=== PATIENT | female | born 1975 | race African-American/Black ===

== ENCOUNTER 2017-06-06 02:47 | Emergency (ER) | payer OTHER ==
[2017-06-06] MEDS ORDERED: Acetaminophen 500 MG TAB ONE (03:15)
[2017-06-06 03:47] LABS: Hematocrit 30.5 % (36.0-47.0); Mean Platelet Volume 6.5 fL (7.4-10.4); White Blood Cell (WBC) Count 6.3 thou/uL (4.8-10.8)
[2017-06-06 04:01] LABS: ALT (SGPT) 11 U/L (8-55); AST (SGOT) 13 U/L (5-34); Alkaline Phosphatase 66 U/L (40-150); Anion Gap 12 mmol/L (10-20); BUN (Urea Nitrogen) 6 mg/dL (7.0-18.7); Bilirubin, Total 0.2 mg/dL (0.2-1.2); CK (CPK) 73 U/L (29-168); Calc. Creatinine Clearance 0 mL/min (70-130); Calcium 8.9 mg/dL (7.8-10.44); Carbon Dioxide 28 mmol/L (22-29); Chloride 102 mmol/L (98-107); Estimated GFR-MDRD Greater than 90; Protein, Total 7.6 g/dL (6.0-8.3)
[2017-06-06 04:04] LABS: Troponin I Less than 0.010 ng/mL (< 0.028)
[2017-06-06 04:22] LABS: #Eosinphils 0.1 thou/uL (0.0-0.7); #Lymphocytes 2.4 thou/uL (1.20-3.40); #Monocytes 0.4 thou/uL (0.11-0.59); #Neutrophils 3.3 thou/uL (1.40-6.50); %Basophils 0.6 % (0.0-1.0); %Eosinophils 1.9 % (0.0-10.0); %Lymphocytes 38.6 % (21.0-51.0); %Monocytes 6.7 % (0.0-10.0); Anisocytosis SLIGHT = 6-15 cells (100X) (0-5/hpf); Hypochromia SLIGHT = 6-15 cells (100X) (0-5/hpf); Microcytosis SLIGHT = 6-15 cells (100X) (0-5/hpf)
[2017-06-06] MEDS ORDERED: Ketorolac Tromethamine 30 MG/ML VIAL ONE (04:38)
--- NOTE | 2017-06-06 09:11 | ULT ---
PRELIMINARY REPORT/[facility]/EMERGENCY AFTER HOURS PROCEDURE: EXAM: US Duplex Right Lower Extremity Veins CLINICAL HISTORY: 42 years old, female; Pain and signs and symptoms; Edema, localized; Lower extremity, right; Leg, low er TECHNIQUE: Real-time ultrasound scan of the veins of the right lower extremity with color Doppler flow, spectral waveform analysis and compression. COMPARISON: No relevant prior studies available. FINDINGS: No visible clot in the included veins. The included veins appear normally compressible. Duplex Doppler evaluation demonstrates flow in the evaluated veins. IMPRESSION: No evidence of acute right lower extremity DVT. Thank you for allowing us to participate in the care of your patient. Dictated and Authenticated by: Kana Matthews MD 06/06/2017 4:03 AM Central Time ([place] & [place]) FINAL REPORT RIGHT LOWER EXTREMITY VENOUS DOPPLER ULTRASOUND: Date: 06/06/17 COMPARISON: None. HISTORY: Pain, edema, assess for deep venous thrombosis. TECHNIQUE: Multiplanar Martínez scale sonographic imaging of the venous structures of right lower extremity obtained with color flow and spectral analysis. FINDINGS: Right common femoral vein, greater saphenous vein, profunda femoral vein, femoral vein, popliteal vei n, and posterior tibial vein are patent. There is normal blood flow, augmentation, and compression wi thin the deep venous system of the right lower extremity with no evidence for deep venous thrombosis. IMPRESSION: No evidence for right lower extremity deep venous thrombosis. I agree with the preliminary report given by Aiden. POS: [facility]
== END 2017-06-06 05:00 | disposition home or self-care (01) ==
LOC: ERS 02:47
DX: M79.89 Other specified soft tissue disorders (principal); D50.0 Iron deficiency anemia secondary to blood loss (chronic); I50.9 Heart failure, unspecified; F41.9 Anxiety disorder, unspecified; F17.210 Nicotine dependence, cigarettes, uncomplicated; Z79.891 Long term (current) use of opiate analgesic; Z79.899 Other long term (current) drug therapy
CPT/HCPCS: 36415; 80053; 82553; 84484; 84703; 85025; 93005; 96372; J1885

== ENCOUNTER 2017-11-30 22:54 | Emergency (ER) | payer OTHER ==
[2017-11-30] MEDS ORDERED: Adenosine 6 MG/2 ML VIAL ONE (23:05)
[2017-11-30] MEDS ORDERED: Magnesium Sulfate 2 GM/100 ML BAG ONE (23:17)
[2017-11-30] MEDS ORDERED: Ketorolac Tromethamine 30 MG/ML VIAL ONE (23:21)
== END 2017-11-30 23:46 | disposition home or self-care (01) ==
LOC: ERS 22:54
DX: I47.1 Supraventricular tachycardia (principal); I50.9 Heart failure, unspecified; F41.9 Anxiety disorder, unspecified; F17.210 Nicotine dependence, cigarettes, uncomplicated; Z79.899 Other long term (current) drug therapy
CPT/HCPCS: 93005; 94760; 96374; 96375; J0153; J1885; J3475

== ENCOUNTER 2018-03-09 21:16 | Emergency (ER) | payer OTHER ==
--- NOTE | 2018-03-09 21:53 | RAD ---
CHEST ONE VIEW: HISTORY: Chest pain. COMPARISON: Chest radiograph from 03/31/2017. FINDINGS: Heart size is mildly enlarged. Mild pulmonary vascular congestion. No pneumothorax or large effusio n. No acute osseous abnormality. IMPRESSION: Mild cardiomegaly and pulmonary vascular congestion. POS: [facility]
== END 2018-03-09 21:41 | disposition left against medical advice (07) ==
LOC: ERS 21:16
DX: Z53.21 Procedure and treatment not carried out due to patient leaving prior to being seen by health care provider (principal)
CPT/HCPCS: 71045; 93005

== ENCOUNTER 2018-03-26 08:39 | Emergency (ER) | payer OTHER ==
[2018-03-26 09:50] LABS: ALT (SGPT) 8 U/L (8-55); AST (SGOT) 12 U/L (5-34); Albumin 3.6 g/dL (3.5-5.0); Alkaline Phosphatase 73 U/L (40-150); Anion Gap 12 mmol/L (10-20); BUN (Urea Nitrogen) 7 mg/dL (7.0-18.7); Bilirubin, Total 0.3 mg/dL (0.2-1.2); Calc. Creatinine Clearance 0 mL/min (70-130); Calcium 9.2 mg/dL (7.8-10.44); Carbon Dioxide 21 mmol/L (22-29); Chloride 106 mmol/L (98-107); Estimated GFR-MDRD Greater than 90; Globulin 4.1 g/dL (2.4-3.5); Glucose 100 mg/dL (70-105); Potassium 4.1 mmol/L (3.5-5.1); Protein, Total 7.7 g/dL (6.0-8.3); Sodium 135 mmol/L (136-145)
[2018-03-26 09:53] LABS: CKMB 0.5 ng/mL (0-6.6); Troponin I Less than 0.010 ng/mL (< 0.028)
--- NOTE | 2018-03-26 10:04 | RAD ---
CHEST ONE VIEW: HISTORY: Chest pain. COMPARISON: Chest radiograph from 03/09/2018. FINDINGS: Heart size is mildly enlarged. Mild pulmonary vascular congestion. No pneumothorax. IMPRESSION: Mild cardiomegaly and pulmonary vascular congestion. POS: [facility]
[2018-03-26 10:15] LABS: #Eosinphils 0.1 thou/uL (0.0-0.7); #Lymphocytes 2.1 thou/uL (1.20-3.40); #Monocytes 0.5 thou/uL (0.11-0.59); #Neutrophils 5.1 thou/uL (1.40-6.50); %Basophils 0.3 % (0.0-1.0); %Eosinophils 1.5 % (0.0-10.0); %Lymphocytes 26.5 % (21.0-51.0); %Monocytes 6.5 % (0.0-10.0); %Neutrophils 65.3 % (42.0-75.0); Mean Corpuscular Hemoglobin 24.2 pg (27.0-31.0); Mean Corpuscular Volume 78.1 fL (78.0-98.0); Mean Platelet Volume 9.7 fL (7.4-10.4); Platelet Count 240 thou/uL (130-400); RBC Distribution Width 20.1 % (11.5-14.5); Red Blood Cell (RBC) Count 4.11 mill/uL (4.20-5.40); White Blood Cell (WBC) Count 7.8 thou/uL (4.8-10.8)
== END 2018-03-26 12:38 | disposition home or self-care (01) ==
LOC: ERS 08:39
DX: N93.8 Other specified abnormal uterine and vaginal bleeding (principal); J30.9 Allergic rhinitis, unspecified; I50.9 Heart failure, unspecified; D64.9 Anemia, unspecified; F17.210 Nicotine dependence, cigarettes, uncomplicated; Z79.899 Other long term (current) drug therapy
CPT/HCPCS: 36415; 71045; 80053; 82553; 83880; 84484; 85025; 93005; 94760

== ENCOUNTER 2018-04-03 04:56 | Inpatient (IN) | payer OTHER ==
[2018-04-03] MEDS ORDERED: Diltiazem 125 MG/25 ML ONE (05:02)
[2018-04-03 05:24] LABS: #Basophils 0.1 thou/uL (0.0-0.2); #Eosinphils 0.2 thou/uL (0.0-0.7); #Monocytes 0.6 thou/uL (0.11-0.59); #Neutrophils 4.1 thou/uL (1.40-6.50); %Basophils 0.9 % (0.0-1.0); %Eosinophils 2.3 % (0.0-10.0); %Lymphocytes 29.5 % (21.0-51.0); %Monocytes 7.9 % (0.0-10.0); %Neutrophils 59.5 % (42.0-75.0); Hemoglobin 10.1 g/dL (12.0-16.0); Mean Corpuscular Hemoglobin 23.7 pg (27.0-31.0); Mean Corpuscular Volume 78.9 fL (78.0-98.0); Mean Platelet Volume 9.3 fL (7.4-10.4); Platelet Count 220 thou/uL (130-400); RBC Distribution Width 20.1 % (11.5-14.5); Red Blood Cell (RBC) Count 4.28 mill/uL (4.20-5.40); White Blood Cell (WBC) Count 6.9 thou/uL (4.8-10.8)
[2018-04-03 05:36] LABS: ALT (SGPT) 11 U/L (8-55); AST (SGOT) 12 U/L (5-34); Albumin 3.7 g/dL (3.5-5.0); Alkaline Phosphatase 62 U/L (40-150); Anion Gap 10 mmol/L (10-20); BUN (Urea Nitrogen) 11 mg/dL (7.0-18.7); Bilirubin, Total 0.3 mg/dL (0.2-1.2); CK (CPK) 37 U/L (29-168); Calc. Creatinine Clearance 0 mL/min (70-130); Carbon Dioxide 26 mmol/L (22-29); Chloride 106 mmol/L (98-107); Estimated GFR-MDRD Greater than 90; Globulin 4.1 g/dL (2.4-3.5); Glucose 103 mg/dL (70-105); Potassium 3.7 mmol/L (3.5-5.1); Protein, Total 7.8 g/dL (6.0-8.3); Sodium 138 mmol/L (136-145)
[2018-04-03 05:41] LABS: CKMB 0.3 ng/mL (0-6.6); Troponin I Less than 0.010 ng/mL (< 0.028)
--- NOTE | 2018-04-03 07:54 | RAD ---
SINGLE VIEW OF THE CHEST: COMPARISON: 03/26/18. HISTORY: Chest pain. FINDINGS: A single view of the chest shows a normal-size cardiomediastinal silhouette. Bilateral pulmonary vas cular enlargement is stable. There is no evidence of consolidation, mass, or pleural effusion. IMPRESSION: No evidence of acute cardiopulmonary disease. POS: [facility]
[2018-04-03 08:53] LABS: Troponin I Less than 0.010 ng/mL (< 0.028)
--- NOTE | 2018-04-03 09:00 | PDOC.FPRHP ---
- History of Present Illness Chief Complaint: Chest pain History of Present Illness: Kellen Covington is a 43 year old female with a past history of CHF who presents to the ED with a several hour history of sharp, substernal chest pain. The pain began suddenly at midnight and woke the patient up from sleep. It went away after she took a Tylenol #3 and she was able to go back to sleep. The pain recurred about four hours later and did not improve until she came to the ED. In the ED she was found to have atrial flutter with a rate of 150s. She was started on a diltiazem drip and given 1 L NS bolus. Of note, she was admitted one year ago for atypical chest pain related to polysubstance abuse. At that time she tested positive for methamphetamines, cocaine, and PCP. - Allergies/Adverse Reactions Allergies Allergy/AdvReac Type Severity Reaction Status Date / Time aspirin Allergy Severe Short of Verified 03/31/17 21:24 Breath Penicillins Allergy Severe Short of Verified 03/31/17 21:24 Breath - Home Medications Medication Instructions Recorded Confirmed Type Ferrous Sulfate [Iron] 325 mg PO BID #60 tablet 04/01/17 04/03/18 Rx Furosemide [Lasix] 40 mg PO DAILY #30 tab 04/01/17 04/03/18 Rx Potassium Chloride [K-Dur] 20 meq PO DAILY #30 tab 04/01/17 04/03/18 Rx Acetaminophen W/ Codeine 1 - 2 tab PO Q6HR 04/03/18 04/03/18 History [Acetaminophen/Codeine #3] Citalopram [CeleXA] 20 mg PO DAILY 04/03/18 04/03/18 History Docusate [Colace] 100 mg PO BID 04/03/18 04/03/18 History Fluticasone Propionate [Flonase 1 spray EA NARE DAILY 04/03/18 04/03/18 History Nasal [place]] Spironolactone [Aldactone] 50 mg PO DAILY 04/03/18 04/03/18 History traMADol HCl [Ultram] 50 mg PO BID PRN 04/03/18 04/03/18 History - History PMHx:CHF, Anxiety, Depression, Polysubstance abuse PSHx: x 2 FHx: Paternal history of diabetes Social:Pt has prior history of polysubstance abuse. - Review of Systems Eyes: denies: eye pain Cardiovascular: reports: chest pain. denies: palpitation Gastrointestinal: reports: vomiting, abdominal pain Skin: denies: rashes Musculoskeletal: denies: pain Psychological: denies: anxiety - Vital signs BP: 121/72 HR: 78 RR: 18 Tmax: 98.2 Pox:100 % on RA Wt: 199.0 kg / - Physical Exam Constitutional: NAD, awake, alert and oriented HEENT: normocephalic and atraumatic Neck: supple, trachea midline Chest: no-tender to palpation Heart: RRR Lungs: CTAB, no wheezing Abdomen: soft, non-tender Musculoskeletal: normal structure Neurological: CN II-XII intact Skin: no rash/lesions Psychiatric: normal mood and affect FMR H&P: Results - Labs Result Diagrams: 04/03/18 05:10 04/03/18 05:10 Lab results: WBC 6.9 thou/uL (4.8-10.8) 04/03/18 05:10 Hgb 10.1 g/dL (12.0-16.0) L 04/03/18 05:10 Hct 33.8 % (36.0-47.0) L 04/03/18 05:10 MCV 78.9 fL (78.0-98.0) 04/03/18 05:10 Plt Count 220 thou/uL (130-400) 04/03/18 05:10 Neutrophils % 59.5 % (42.0-75.0) 04/03/18 05:10 Sodium 138 mmol/L (136-145) 04/03/18 05:10 Potassium 3.7 mmol/L (3.5-5.1) 04/03/18 05:10 Chloride 106 mmol/L (98-107) 04/03/18 05:10 Carbon Dioxide 26 mmol/L (22-29) 04/03/18 05:10 BUN 11 mg/dL (7.0-18.7) 04/03/18 05:10 Creatinine 0.75 mg/dL (0.6-1.1) 04/03/18 05:10 Glucose 103 mg/dL (70-105) 04/03/18 05:10 Calcium 9.0 mg/dL (7.8-10.44) 04/03/18 05:10 Total Bilirubin 0.3 mg/dL (0.2-1.2) 04/03/18 05:10 AST 12 U/L (5-34) 04/03/18 05:10 ALT 11 U/L (8-55) 04/03/18 05:10 Alkaline Phosphatase 62 U/L (40-150) 04/03/18 05:10 Creatine Kinase 37 U/L (29-168) 04/03/18 05:10 CK-MB (CK-2) 0.3 ng/mL (0-6.6) 04/03/18 05:10 B-Natriuretic Peptide 23.2 pg/mL (0-100) 04/03/18 05:10 Serum Total Protein 7.8 g/dL (6.0-8.3) 04/03/18 05:10 Albumin 3.7 g/dL (3.5-5.0) 04/03/18 05:10 - EKG Interpretation EKG: Atrial Flutter with 2:1 conduction FMR H&P: A/P - Problem List (1) Atrial flutter Current Visit: Yes Status: Acute Code(s): I48.92 - UNSPECIFIED ATRIAL FLUTTER (2) Anxiety Current Visit: Yes Status: Acute Code(s): F41.9 - ANXIETY DISORDER, UNSPECIFIED (3) Congestive heart failure Current Visit: Yes Status: Acute Code(s): I50.9 - HEART FAILURE, UNSPECIFIED (4) Iron deficiency anemia Current Visit: Yes Status: Acute Code(s): D50.9 - IRON DEFICIENCY ANEMIA, UNSPECIFIED - Plan Atrial Flutter - unclear whether this is new onset or not - will treat with Th Lovenox. - will order TSH, Echo, UDS. - consider cards consult Atypical chest pain - likely secondary to above. - will continue to trend troponins. - negative stress test 1 year ago. Abdominal pain - unclear etiology; benign exam - will order Bentyl for cramping. Congestive heart failure. - will repeat Echo. Normal EF last year. - resume home meds. Iron deficiency anemia. - will resume PO iron supplementation. Anxiety - resume home meds. Attending Addendum - Attending Addendum Date/Time: 04/03/18 [id number] I personally evaluated the patient and discussed the management with Dr. Elena I agree with the History, Examination, Assessment and Plan documented above with any addition or exceptions noted below. 43 yo female with multiple ER visits with SVT received adenosine several occasions. Found with Atrial Flutter 2:1 conduction conversion with diatalizem. PMHX notable DUB with anemia advised for hysterectomy given medical problem may be better candidate for uterine ablation consideration penitentiary. Hx Drug use and treated Hepatitis B. Rec Echocardiogram note prior visits/admissions to [facility] for heart related complaints rec check TFT's and appreciate recommendations from Cardiology [employer]. Note celexa known to prolong QT would consider change to different medication as well.
[2018-04-03] MEDS ORDERED: Dicyclomine 10 MG CAP PO PRN (09:58)
[2018-04-03 10:08] VITALS: BMI 60.7
[2018-04-03] MEDS: Docusate 100 MG CAP PO SCH ×2 (10:19→20:14)
[2018-04-03] MEDS: Potassium Chloride 20 MEQ TAB PO SCH (10:19)
[2018-04-03] MEDS: Citalopram 10 MG TAB PO SCH (10:20)
[2018-04-03] MEDS: Ferrous Sulfate 325 MG TAB PO SCH ×2 (10:20→20:13)
[2018-04-03] MEDS: Furosemide 40 MG TAB PO SCH (10:20)
[2018-04-03] MEDS: Enoxaparin Sodium 120 MG/0.8 ML SYRINGE SC SCH (10:21)
[2018-04-03] MEDS: Fluticasone Propionate Nasal Spray 16 gm Bottle NASAL SCH (10:21)
[2018-04-03] MEDS: Spironolactone 25 MG TAB PO SCH (10:21)
[2018-04-03 11:27] LABS: Troponin I Less than 0.010 ng/mL (< 0.028)
[2018-04-03 12:27] LABS: HIV (1/2) Antibody/Antigen Non-Reactive (NonReactive); HIV 1/2 INDEX 0.06 S/CO (<1.00); Hep A IgM AB Non-Reactive (NonReactive); Hep A IgM S/CO 0.05 S/CO (0-0.79); Hep B Surf Ag Non-Reactive S/CO (NonReactive); Hep C IgG Ab Non-Reactive (NonReactive); Hep C Index 0.24 S/CO (0-0.79)
[2018-04-03 13:11] LABS: Hepatitis B Core IGM Abs Reactive (NonReactive)
[2018-04-03 14:56] LABS: Amphetamine Not Detected (NotDetected); Barbiturates Screen Not Detected (NotDetected); Benzodiazepine Screen Not Detected (NotDetected); Cocaine Metabolite Screen Not Detected (NotDetected); Medtox Reader # READER 1; Methadone Not Detected (NotDetected); Methamphetamine Not Detected (NotDetected); Opiate Screen Detected (NotDetected); Oxycodone Screen Not Detected (NotDetected); Phencyclidine (PCP) Detected (NotDetected); THC/Cannabinoid Screen Not Detected (NotDetected); Tricyclic Screen Not Detected (NotDetected)
[2018-04-03 14:57] LABS: Medtox Control Line Valid? VALID (VALID)
[2018-04-03] MEDS: traMADol HCl 50 MG TAB PO PRN (15:58)
--- NOTE | 2018-04-03 19:39 | CON ---
DATE OF CONSULTATION: 04/03/2018 REFERRING PHYSICIAN: Hermilo Laughlin M.D. REASON FOR CONSULTATION: SVT and palpitations. HISTORY OF PRESENT ILLNESS: Ms. Covington is a 43-year-old woman who presented to the emergency room this morning after beginning to feel heart racing with associated substernal chest pain that initiall y began around midnight. It woke from her sleep and she took a T3 at home and was able to fall back asleep. At approximately 4 in the morning, she awoke and found that her heart continued to race and she went into the emergency room for further evaluation. In the ER, she was found to be in SVT which was interpreted as 2:1 atrial flutter with ventricular rates at approximately 150 beats per minute a nd she was started on diltiazem drip and given some IV fluids. While on IV diltiazem, she converted to sinus rhythm and has remained there. Even off her diltiazem drip with rate controlled in the 60-7 0 beat per minute range. Of note, she has a history of multiple emergency room visits for SVT and mayer s been chemically converted multiple times with the adenosine. She denies any home medications that have been provided to treat this in the past. She feels that her episodes are related to emotional s tress and are relieved with rest and also when she takes additional anxiety and depression medication . Currently, Ms. Covington is resting comfortably in bed. She denies any heart racing, palpitations, ch est pain, pressure, or dizziness during the exam. When she speaks that she thinks emotionally distre ssing to her, she does experience palpitations. Patient states that she has been out of her Lasix for the past 3 weeks and has noted substantial flui d retention as well as shortness of breath and swelling of the extremities with a 30-pound weight gai n. REVIEW OF SYSTEMS: A 12-point review of systems was conducted and is negative except that listed abo ve in the HPI. PAST MEDICAL HISTORY: Congestive heart failure, anxiety, depression, polysubstance abuse and SVT. PAST SURGICAL HISTORY: x2. FAMILY HISTORY: Positive for diabetes. Negative for sudden cardiac or early onset of coronary artery disease. SOCIAL HISTORY: Lives with her sons. There is substantial family stress. History of polysubstance abuse. ALLERGIES: Include PENICILLIN. MEDICATIONS: Aspirin. Home medications, iron 325 mg p.o. b.i.d., T3 1-2 tabs q.6 hours, tramadol 50 mg p.o. b.i.d. as needed, Aldactone 50 mg daily, potassium 20 mEq p.o. daily, Lasix 40 mg p.o. daily , Flonase daily, Colace 100 mg p.o. b.i.d. and Celexa 20 mg p.o. daily. OBJECTIVE VITAL SIGNS: Temperature 98.4, pulse 78, blood pressure 142/93, respirations 24, oxygen is 99% on ro om air. GENERAL: This is a well groomed a 43-year-old female in some emotional distress, but seems hemodynam ically stable. She is morbidly obese with a BMI of 60. She is alert and oriented. Her speech is cl ear. Her affect is tearful. She is normocephalic, atraumatic. Her sclerae are anicteric. EOMs are intact. Oral mucosa is moist and pink. NECK: Supple without jugular venous distention. Thyroid is nonpalpable. LUNGS: Lung sounds are distant. Clear in the upper lobe, somewhat difficult to auscultate in the lo wer lobes with her large habitus. Her heart rate is currently irregularly irregular without signific ant murmur, rub or gallop. Her PMI is nonpalpable due to habitus. ABDOMEN: Morbidly obese, soft, and nontender without palpable masses. EXTREMITIES: Warm and dry to touch without clubbing or cyanosis, 2+ edema is noted to bilateral lowe r extremities. NEUROLOGIC: Grossly intact and nonfocal. LABORATORY DATA: Hematology: WBC 6.9, hemoglobin 10.1, hematocrit 33.8, platelet count is 220. Gail annelise: Sodium 138, potassium 3.7, BUN is 11, creatinine 0.75. ALT and AST are within normal limits . Serum troponins were conducted and are less than 0.01. BNP 23 and TSH is 0.94. IMAGING DATA: 1. Echocardiogram is pending. 2. Chest x-ray on 04/03/2018 normal size, mediastinal silhouette, bilateral pulmonary vascular enlar gement is stable. Negative for consolidation, mass or pleural effusion. IMPRESSION: 1. Heart racing or palpitations. 2. Sinus tachycardia versus SVT by EKG review. 3. Morbid obesity with a BMI greater than 60. 4. Chronic lower extremity edema and venous insufficiency. 5. Anxiety/ RECOMMENDATIONS: Agree with current plan on keeping her on Cardizem-CD 180 mg p.o. daily as this isamar l treat both sinus tachycardia and SVT and will also help treat her hypertension. Overall recommende d treatment plan as weight loss and management of emotional stress. We discussed outpatient manageme nt with possible EP study if she is not responsive to diltiazem. But this could be challenging with her weight unless she is able to lose some weight. At this time, the patient agrees with medical man agement is not interested and invasive management techniques. Thank you for allowing us to participate in the care of this patient.
[2018-04-03] MEDS: Acetaminophen/Codeine 30-300mg Tablet PO PRN (20:12)
[2018-04-04] MEDS: Acetaminophen/Codeine 30-300mg Tablet PO PRN ×2 (03:44→15:53)
--- NOTE | 2018-04-04 05:39 | PDOC.FM ---
- Subjective Subjective: Has 12 beats of SVT around midnight. Pt. reported associated chest pain and palpitations similar to the episode she experienced at admission, but not as severe. Denies SOB, dizziness, nausea. No other complaints today. - Objective MAR Reviewed: Yes Vital Signs & Weight: Vital Signs (12 hours) Temp Pulse Resp BP BP Pulse Ox 04/04/18 03:49 98.4 F 74 14 138/88 100 04/03/18 19:51 99 04/03/18 19:08 98.3 F 77 16 127/81 99 Weight Weight 197.721 kg Result Diagrams: 04/03/18 05:10 04/03/18 05:10 <Kavitha Mccracken - Last Filed: 04/04/18 07:33> - Objective Vital Signs & Weight: Vital Signs (12 hours) Temp Pulse Resp BP BP Pulse Ox 04/04/18 07:32 97.5 F L 63 20 147/93 H 100 04/04/18 03:49 98.4 F 74 14 138/88 100 Weight Weight 198.129 kg I&O: 04/03/18 04/04/18 04/05/18 06:59 06:59 06:59 Intake Total 720 Output Total 800 Balance -80 Result Diagrams: 04/04/18 08:10 04/04/18 08:10 <Leif Nogueira - Last Filed: 04/04/18 10:27> Phys Exam - Physical Examination Constitutional: NAD HEENT: moist MMs, sclera anicteric Neck: full ROM Cardiovascular: no significant murmur Gastrointestinal: soft, non-tender Musculoskeletal: pulses present b/l edema, non pitting Neurological: moves all 4 limbs Psychiatric: normal affect, A&O x 3 Skin: normal turgor <Kavitha Mccracken - Last Filed: 04/04/18 07:33> Dx/Plan (1) SVT (supraventricular tachycardia) Code(s): I47.1 - SUPRAVENTRICULAR TACHYCARDIA Status: Acute (2) Anxiety Code(s): F41.9 - ANXIETY DISORDER, UNSPECIFIED Status: Acute (3) Anemia Code(s): D64.9 - ANEMIA, UNSPECIFIED Status: Acute - Plan Plan: 43 yo F with PMH of multiple ED visits for SVT with chemical conversion with adenosine. Admitted for AFlutter 2:1 conduction s/p dilt. Aflutter 2:1 conduction -Overnight had 12 beats of SVT: PCP can still be in system. Will keep at 180 dose and monitor today. If continue to have recurrent SVTs,will inc. to 240. -likely 2/2 PCP use (per UDS) and historical use of "x pill/ecstasy" -Could also be due to chronic anemia from dysfunctional uterine bleeding -Less likely due to cardiac structural causes, ischemia or electrolyte imbalance since echo w/ nml EF at 55-60%, nml TSH, Troponins negative x3 -Seen by Dr. Clark: rx weight loss and emotional mgmt. Pt not currently interested in invasive intervention at this point. She believes SVT episodes to be triggered by anxiety and emotional stressor. Dr. Clark rx outpt mgmt with EP study if unresponsive to cardizem. -Plan: continue cardizem CD, th lovenox, continue tele monitoring Hypertension -Stable on home lasix, spironolactone, kdur Anxiety -continue home celexa Anemia, normocytic -hx of DUB, rx outpt workup -at baseline per record review -continue home iron dvt ppx: th lovenox <Kavitha Mccracken - Last Filed: 04/04/18 07:33> (1) Atrial flutter Code(s): I48.92 - UNSPECIFIED ATRIAL FLUTTER Status: Acute (2) Anxiety Code(s): F41.9 - ANXIETY DISORDER, UNSPECIFIED Status: Acute (3) Congestive heart failure Code(s): I50.9 - HEART FAILURE, UNSPECIFIED Status: Acute (4) Iron deficiency anemia Code(s): D50.9 - IRON DEFICIENCY ANEMIA, UNSPECIFIED Status: Acute <Leif Nogueira - Last Filed: 04/04/18 10:27> Attending Addendum - Attending Addendum Date/Time: 04/04/18 1023 I personally evaluated the patient and discussed the management with Dr. Mccracken I agree with the History, Examination, Assessment and Plan documented above with any addition or exceptions noted below. Patient with multiple risk factor for non substained Atrial fibrillation:morbid obesity, anxiety,drug use will continue cardizem expectant management appreciate consult from electrophysiology. Consider low dose scheduled ativan and switch to wellbutrin from celexa given tobacco abuse and weight management. <Leif Nogueira - Last Filed: 04/04/18 10:27>
[2018-04-04] MEDS: traMADol HCl 50 MG TAB PO PRN ×2 (07:22→20:13)
[2018-04-04] MEDS: Spironolactone 25 MG TAB PO SCH (08:35)
[2018-04-04] MEDS: Docusate 100 MG CAP PO SCH ×2 (08:35→20:08)
[2018-04-04] MEDS: Furosemide 40 MG TAB PO SCH (08:35)
[2018-04-04] MEDS: Fluticasone Propionate Nasal Spray 16 gm Bottle NASAL SCH (08:36)
[2018-04-04] MEDS: Citalopram 10 MG TAB PO SCH (08:36)
[2018-04-04] MEDS: Ferrous Sulfate 325 MG TAB PO SCH ×2 (08:36→20:08)
[2018-04-04] MEDS: Potassium Chloride 20 MEQ TAB PO SCH (08:36)
[2018-04-04 08:49] LABS: Mean Corpuscular HGB CONC 29.8 g/dL (32.0-36.0); Mean Corpuscular Hemoglobin 23.6 pg (27.0-31.0); Mean Corpuscular Volume 79.2 fL (78.0-98.0); Mean Platelet Volume 9.9 fL (7.4-10.4); Platelet Count 247 thou/uL (130-400); RBC Distribution Width 19.9 % (11.5-14.5); Red Blood Cell (RBC) Count 4.26 mill/uL (4.20-5.40); White Blood Cell (WBC) Count 6.1 thou/uL (4.8-10.8)
[2018-04-04 08:51] LABS: Anion Gap 10 mmol/L (10-20); BUN (Urea Nitrogen) 8 mg/dL (7.0-18.7); Calc. Creatinine Clearance 327 mL/min (70-130); Carbon Dioxide 26 mmol/L (22-29); Chloride 103 mmol/L (98-107); Estimated GFR-MDRD Greater than 90; Glucose 103 mg/dL (70-105); Potassium 3.8 mmol/L (3.5-5.1); Sodium 135 mmol/L (136-145)
[2018-04-04] MEDS ORDERED: Diltiazem HCl SR 60 mg Capsule PO SCH (09:00)
[2018-04-04 09:13] LABS: Hypochromia SLIGHT = 6-15 cells (100X) (0-5/hpf); Large Platelets SLIGHT; Lymphocytes 34 % (21-51); MDiff Complete? YES; Monocytes 2 % (0-10); Neutrophil 60 % (42-75); Nucleated RBC 1 % (0); PLT Morphology Comment Appears Adequate; Polychromasia SLIGHT = 2-3 cells (100X) (0-2/hpf); Reactive Lymphocytes 2 % (0-10)
--- NOTE | 2018-04-04 09:58 | PDOC.EVN ---
Event Note - Event Note Event Note: Discontinued celexa due to risk of QT prolongation. Will start on wellbutrin to also aid in smoking cessation. Counseled on smoking and drug cessation.
[2018-04-04] MEDS: Nicotine 7 MG PATCH TD SCH (11:14)
[2018-04-04 11:27] LABS: HBSAg Index 0.18 S/CO (0-0.99); Hep B Surf Ag Non-Reactive S/CO (NonReactive)
[2018-04-04 12:39] LABS: Hep B Core Total Ab Reactive (NonReactive); Hep B Surf AB Reactive (NonReactive)
[2018-04-04 12:40] LABS: HBSAB Concentration 824.77 mIU/mL; Hep B Core Total Index 8.57 S/CO (0-0.79)
[2018-04-04] MEDS: Polyethylene Glycol 3350 17 GM Packet PO PRN (16:49)
[2018-04-04] MEDS: Bupropion 150 MG XL TAB PO SCH (20:08)
[2018-04-04] MEDS: Enoxaparin Sodium 120 MG/0.8 ML SYRINGE SC SCH (20:09)
[2018-04-05] MEDS: Acetaminophen/Codeine 30-300mg Tablet PO PRN ×2 (00:21→13:41)
--- NOTE | 2018-04-05 06:08 | PDOC.FM ---
- Subjective Subjective: No acute events overnight. Pt endorses episode of chest pain, brief, similar to prior episodes but less severe last night. Tele strips shows NSR, PVCs. Denies anxiety. - Objective MAR Reviewed: Yes Vital Signs & Weight: Vital Signs (12 hours) Temp Pulse Resp BP Pulse Ox 04/05/18 03:15 97.7 F 68 16 121/63 99 04/04/18 23:14 98.4 F 75 20 135/80 98 04/04/18 19:08 98.1 F 75 20 133/70 99 Weight Weight 198.628 kg I&O: 04/03/18 04/04/18 04/05/18 06:59 06:59 06:59 Intake Total 720 720 Output Total 800 100 Balance -80 620 Result Diagrams: 04/04/18 08:10 04/04/18 08:10 <Kavitha Mccracken - Last Filed: 04/05/18 07:51> - Objective Vital Signs & Weight: Vital Signs (12 hours) Temp Pulse Resp BP BP Pulse Ox 04/05/18 11:15 73 18 122/64 99 04/05/18 09:40 99 04/05/18 07:50 98.4 F 72 20 132/85 99 04/05/18 03:15 97.7 F 68 16 121/63 99 Weight Weight 198.628 kg I&O: 04/04/18 04/05/18 04/06/18 06:59 06:59 06:59 Intake Total 720 1200 Output Total 800 400 Balance -80 800 Result Diagrams: 04/04/18 08:10 04/05/18 09:03 <Leif Nogueira - Last Filed: 04/05/18 11:54> Phys Exam - Physical Examination Constitutional: NAD HEENT: moist MMs, sclera anicteric Neck: full ROM Respiratory: no wheezing, clear to auscultation bilateral Cardiovascular: no significant murmur, no rub Gastrointestinal: soft, non-tender Musculoskeletal: pulses present, edema present Neurological: moves all 4 limbs Psychiatric: normal affect, A&O x 3 Skin: normal turgor <Kavitha Mccracken - Last Filed: 04/05/18 07:51> Dx/Plan (1) SVT (supraventricular tachycardia) Code(s): I47.1 - SUPRAVENTRICULAR TACHYCARDIA Status: Acute (2) Anxiety Code(s): F41.9 - ANXIETY DISORDER, UNSPECIFIED Status: Acute (3) Anemia Code(s): D64.9 - ANEMIA, UNSPECIFIED Status: Acute (4) Hypertension Code(s): I10 - ESSENTIAL (PRIMARY) HYPERTENSION Status: Acute (5) Drug abuse Code(s): F19.10 - OTHER PSYCHOACTIVE SUBSTANCE ABUSE, UNCOMPLICATED Status: Acute (6) Hypertension Code(s): I10 - ESSENTIAL (PRIMARY) HYPERTENSION Status: Acute - Plan Plan: 43 yo F with PMH of multiple ED visits for SVT with chemical conversion with adenosine. Admitted for AFlutter 2:1 conduction s/p dilt. drip. Non sustained Aflutter, 2:1 conduction -likely 2/2 PCP use (per UDS) and historical use of "x pill/ecstasy"; however multiple risk factors: morbid obesity, tobacco use, anemia -Less likely due to cardiac structural causes, ischemia or electrolyte imbalance since echo w/ nml EF at 55-60%, nml TSH, Troponins negative x3 -Seen by Dr. Clark: pt declined further workup or intervention at this time -Plan: continue cardizem CD, lovenox, continue tele monitoring, will obtain EKG PCP abuse -+UDS, counseled pt on cessation Constipation -docusate, senekot, pending BM Hypertension -Stable on home lasix, spironolactone, kdur Anxiety -continue home celexa Anemia, normocytic -hx of DUB, rx outpt workup -at baseline per record review -continue home iron dvt ppx: th lovenox dispo: d/c pending normal ekg. stable. <Kavitha Mccracken - Last Filed: 04/05/18 07:51> (1) Atrial flutter Code(s): I48.92 - UNSPECIFIED ATRIAL FLUTTER Status: Acute (2) Anxiety Code(s): F41.9 - ANXIETY DISORDER, UNSPECIFIED Status: Acute (3) Congestive heart failure Code(s): I50.9 - HEART FAILURE, UNSPECIFIED Status: Acute (4) Iron deficiency anemia Code(s): D50.9 - IRON DEFICIENCY ANEMIA, UNSPECIFIED Status: Acute <Leif Nogueira - Last Filed: 04/05/18 11:54> Attending Addendum - Attending Addendum Date/Time: 04/05/18 1152 I personally evaluated the patient and discussed the management with Dr. Mccracken I agree with the History, Examination, Assessment and Plan documented above with any addition or exceptions noted below. Patient counseled need further outpatient follow up She appears stable for dismissal to home at this time. EKG rate controlled NSR. <Leif Nogueira - Last Filed: 04/05/18 11:54>
[2018-04-05] MEDS: Spironolactone 25 MG TAB PO SCH (09:41)
[2018-04-05] MEDS: Furosemide 40 MG TAB PO SCH (09:41)
[2018-04-05] MEDS: Potassium Chloride 20 MEQ TAB PO SCH (09:41)
[2018-04-05] MEDS: Ferrous Sulfate 325 MG TAB PO SCH ×2 (09:41→20:14)
[2018-04-05] MEDS: Docusate 100 MG CAP PO SCH ×2 (09:42→20:13)
[2018-04-05] MEDS: Polyethylene Glycol 3350 17 GM Packet PO PRN (09:42)
[2018-04-05] MEDS: Enoxaparin Sodium 120 MG/0.8 ML SYRINGE SC SCH ×2 (09:42→20:14)
[2018-04-05] MEDS: Bupropion 150 MG XL TAB PO SCH ×2 (09:42→20:13)
[2018-04-05] MEDS: traMADol HCl 50 MG TAB PO PRN ×2 (09:42→20:13)
[2018-04-05] MEDS: Fluticasone Propionate Nasal Spray 16 gm Bottle NASAL SCH (09:43)
[2018-04-05 09:46] LABS: ALT (SGPT) 15 U/L (8-55); AST (SGOT) 29 U/L (5-34); Albumin 3.6 g/dL (3.5-5.0); Alkaline Phosphatase 63 U/L (40-150); Anion Gap 15 mmol/L (10-20); BUN (Urea Nitrogen) 8 mg/dL (7.0-18.7); Bilirubin, Total 0.4 mg/dL (0.2-1.2); Calc. Creatinine Clearance 301 mL/min (70-130); Calcium 9.3 mg/dL (7.8-10.44); Carbon Dioxide 21 mmol/L (22-29); Chloride 104 mmol/L (98-107); Estimated GFR-MDRD Greater than 90; Globulin 4.4 g/dL (2.4-3.5); Glucose 133 mg/dL (70-105); Potassium 4.6 mmol/L (3.5-5.1); Sodium 135 mmol/L (136-145)
[2018-04-05] MEDS: Polyethylene Glycol 3350 17 GM Packet PER TUBE SCH (10:11)
[2018-04-05] MEDS: Nicotine 7 MG PATCH TD SCH (11:16)
[2018-04-05] MEDS ORDERED: Ondansetron ODT 8 MG TAB SL PRN (18:37)
[2018-04-06] MEDS ORDERED: Ondansetron ODT 4 MG TAB SL PRN (01:32)
[2018-04-06] MEDS ORDERED: Ondansetron ODT 4 MG TAB PO PRN (01:59)
[2018-04-06] MEDS: Acetaminophen/Codeine 30-300mg Tablet PO PRN (04:19)
--- NOTE | 2018-04-06 08:06 | PDOC.FM ---
- Subjective Subjective: Ms Covington was discharged yesterday but fell prior to leaving the hospital and wished to stay overnight. This morning she has complaint of Left leg pain but reports pain is controlled with Tylenol #3. She lives with her parents, her dad would be picking her up after work today if she were to leave. Denies palpitations, SOB, chest pain. No events on Tele. - Objective Vital Signs & Weight: Vital Signs (12 hours) Temp Pulse Resp BP Pulse Ox 04/06/18 07:27 97.6 F 73 19 120/68 96 04/06/18 03:00 98.4 F 70 16 120/69 99 04/05/18 22:58 98.1 F 71 16 130/91 H 98 Weight Weight 199.581 kg I&O: 04/05/18 04/06/18 04/07/18 06:59 06:59 06:59 Intake Total 1200 1200 Output Total 400 950 Balance 800 250 Result Diagrams: 04/04/18 08:10 04/05/18 09:03 <Caro Louis - Last Filed: 04/06/18 09:18> - Objective Vital Signs & Weight: Vital Signs (12 hours) Temp Pulse Resp BP Pulse Ox 04/06/18 11:35 98.5 F 69 20 106/58 L 99 04/06/18 07:27 97.6 F 73 19 120/68 96 Weight Weight 199.581 kg I&O: 04/05/18 04/06/18 04/07/18 06:59 06:59 06:59 Intake Total 1200 1200 Output Total 400 950 Balance 800 250 Result Diagrams: 04/04/18 08:10 04/05/18 09:03 <Muriel Contreras - Last Filed: 04/06/18 17:17> Phys Exam - Physical Examination Constitutional: NAD Obese Neck: supple No deformities noted of LLE, Pt walks with a limp-attributes it to LLE pain Psychiatric: normal affect, A&O x 3 <Caro Louis - Last Filed: 04/06/18 09:18> Dx/Plan (1) Anxiety Code(s): F41.9 - ANXIETY DISORDER, UNSPECIFIED Status: Acute (2) Atrial flutter Code(s): I48.92 - UNSPECIFIED ATRIAL FLUTTER Status: Acute (3) Congestive heart failure Code(s): I50.9 - HEART FAILURE, UNSPECIFIED Status: Acute (4) Hypertension Code(s): I10 - ESSENTIAL (PRIMARY) HYPERTENSION Status: Acute (5) Iron deficiency anemia Code(s): D50.9 - IRON DEFICIENCY ANEMIA, UNSPECIFIED Status: Acute (6) SVT (supraventricular tachycardia) Code(s): I47.1 - SUPRAVENTRICULAR TACHYCARDIA Status: Acute (7) Anemia Code(s): D64.9 - ANEMIA, UNSPECIFIED Status: Acute (8) Atypical chest pain Code(s): R07.89 - OTHER CHEST PAIN Status: Acute (9) Drug abuse Code(s): F19.10 - OTHER PSYCHOACTIVE SUBSTANCE ABUSE, UNCOMPLICATED Status: Acute - Plan Plan: 43 yo F with PMH of multiple ED visits for SVT with chemical conversion with adenosine. Admitted for AFlutter 2:1 conduction s/p dilt. drip. Left leg Pain - Fell last night, no obvious deformities or bruising - Switch from Tylenol #3 to Tylenol for pain Non sustained Aflutter, 2:1 conduction -likely 2/2 PCP use (per UDS) and historical use of "x pill/ecstasy"; however multiple risk factors: morbid obesity, tobacco use, anemia -Less likely due to cardiac structural causes, ischemia or electrolyte imbalance since echo w/ nml EF at 55-60%, nml TSH, Troponins negative x3 -Seen by Dr. Clark: pt declined further workup or intervention at this time -home meds: cardizem CD, th lovenox Nausea - Zofran PRN PCP abuse -+UDS, counseled pt on cessation Hypertension -lasix, spironolactone, kdur at home Anxiety -Pt on celexa at home Anemia, normocytic -hx of DUB, rx outpt workup -at baseline per record review dispo: pt was discharged yesterday and will likely leave today <Caro Louis - Last Filed: 04/06/18 09:18> Attending Addendum - Attending Addendum Date/Time: 04/06/18 1457 I personally evaluated the patient and discussed the management with Dr. Louis. I agree with the History, Examination, Assessment and Plan documented above with any addition or exceptions noted below. The patient is able to ambulate with minimal soreness in the leg. She is ready to go home today. <Muriel Contreras - Last Filed: 04/06/18 17:17>
[2018-04-06] MEDS: Spironolactone 25 MG TAB PO SCH (09:24)
[2018-04-06] MEDS: Bupropion 150 MG XL TAB PO SCH (09:25)
[2018-04-06] MEDS: Polyethylene Glycol 3350 17 GM Packet PO PRN (09:25)
[2018-04-06] MEDS: Polyethylene Glycol 3350 17 GM Packet PER TUBE SCH (09:25)
[2018-04-06] MEDS: Potassium Chloride 20 MEQ TAB PO SCH (09:25)
[2018-04-06] MEDS: Ferrous Sulfate 325 MG TAB PO SCH (09:26)
[2018-04-06] MEDS: Docusate 100 MG CAP PO SCH (09:26)
[2018-04-06] MEDS: Enoxaparin Sodium 120 MG/0.8 ML SYRINGE SC SCH (09:26)
[2018-04-06] MEDS: Furosemide 40 MG TAB PO SCH (09:26)
[2018-04-06] MEDS: Fluticasone Propionate Nasal Spray 16 gm Bottle NASAL SCH (09:26)
[2018-04-06] MEDS: traMADol HCl 50 MG TAB PO PRN (09:32)
[2018-04-06] MEDS ORDERED: Acetaminophen 325 MG TAB PO PRN (09:54)
[2018-04-06] MEDS: Nicotine 7 MG PATCH TD SCH (11:21)
[2018-04-06 11:57] VITALS: BP 106/58; TEMP 98.5
--- NOTE | 2018-04-06 20:49 | EKG ---
Test Reason : Blood Pressure : / mmHG Vent. Rate : 072 BPM Atrial Rate : 072 BPM P-R Int : 144 ms QRS Dur : 070 ms QT Int : 404 ms P-R-T Axes : 026 027 038 degrees QTc Int : 442 ms Sinus rhythm with Premature supraventricular complexes Otherwise normal ECG When compared with ECG of 03-APR-2018 05:28, (Unconfirmed) Premature supraventricular complexes are now Present Confirmed by STEFANIA FROST (2) on 04/06/2018 8:49:29 PM Referred By: TEDDY Confirmed By:STEFANIA FROST
[2018-04-07 17:12] LABS: HBV as IU/mL HBV DNA not detected IU/mL (.)
[2018-04-08 13:19] LABS: Hep B Surface AG-Rflx Sendout Negative (Negative); Hepatitis B Core IgM AB Positive (Negative); Hepatitis B Core Total Positive (Negative); Hepatitis B Surface AB-Sendout Reactive (.)
--- NOTE | 2018-04-09 01:04 | DIS-2 ---
DATE OF ADMISSION: 04/03/2018 DATE OF DISCHARGE: 04/06/2018 RESIDENT: Kavitha Mccracken, PGY1. ADMITTING ATTENDING: Dr. Yahir Ricks. DISCHARGE ATTENDING: Dr. Muriel Contreras. CONSULTATIONS: Electrophysiology, Dr. Clark PROCEDURES: None. PRIMARY DIAGNOSIS: Atypical chest pain secondary to atrial flutter likely due to PCP abuse. SECONDARY DIAGNOSES: 1. Tobacco abuse. 2. PCP abuse. 3. Morbid obesity. 4. Anxiety. 5. Menorrhagia. 6. Hypertension. 7. Iron-deficiency anemia. DISCHARGE MEDICATIONS: 1. Wellbutrin 150 mg p.o. b.i.d. 2. Cardizem 180 mg p.o. daily. 3. Nicotine patch 7 mg transdermal q.24 hours. 4. MiraLax 17 grams per medication tube daily. 5. MiraLax 17 grams oral daily p.r.n. for constipation. 6. Aldactone 50 mg p.o. q.a.m. with breakfast. 7. Zofran 4 mg p.o. q.8 hours p.r.n. for nausea. 8. Ferrous sulfate 325 mg p.o. b.i.d. 9. Potassium chloride 20 mEq p.o. 10. Flonase nasal spray 1 spray daily. 11. Colace 100 mg p.o. b.i.d. 12. Tylenol No. 3 1-2 tabs p.o. q.6 hours. 13. Tramadol 50 mg p.o. b.i.d. p.r.n. for pain. 14. Aldactone 50 mg p.o. daily. 15. Lasix 40 mg p.o. daily. DISCONTINUED MEDICATIONS: Celexa 20 mg p.o. daily. HOSPITAL COURSE: Ms. Kellen Covington is a 43-year-old female with history of anxiety who presented to the ED with atypical chest pain. In the ED, she was found to have atrial flutter with a rate of 150s. Cardiac enzymes were negative. EKG was within normal limits. UDS positive for PCP. Rate control achieved with diltiazem drip. Powder Operator, Dr. Clark, was consulted; however, patient declined wanting any further workup or intervention. She was transitioned to p.o. Cardizem but still experienced one episode of symptomatic SVT for 12 beats. Patient has several risk factors including anxiety, PCP abuse , tobacco abuse, and morbid obesity. It was recommended that should she remain symptomatic despite meds she should follow up in his office for further discussion. Shortly before discharge patient had a fall in hospital with associated left leg pain which which improved with Tylenol No. 3. No further workup indicated. DISPOSITION: Stable. DISCHARGE INSTRUCTIONS: 1. Location: Home. 2. Diet: Heart healthy. 3. Activity: As tolerated. 4. Followup: Please follow up with PCP within the week and with Dr. Clark for further discussion about condition. SAULO
--- NOTE | 2018-04-09 17:42 | PQF ---
[employer] Creative Chairman Crystal Reports Winform ViewerMACY SALAS RUPERT WHEATLEY *r [id number] [facility] [id number] CLINICAL DOCUMENTATION CLARIFICATION FORM: POST DISCHARGE Addendum to original discharge summary date: ____ Late entry note date: __ DATE: 04/08/2018 ATTN: RUPERT WHEATLEY Please exercise your independent, professional judgment in responding to the clarification form. Clinical indicators are provided on the bottom of this form for your review Please check appropriate box(s): HEART FAILURE: A. TYPE: [ ] Systolic / HFrEF [ ] Diastolic / HFpEF [ ] Combined Systolic / Diastolic neither- pt does not have ChF B. ACUITY [ ] Acute [ ] Acute on Chronic [ ] Chronic [ ] Other diagnosis [ ] Unable to determine In addition, please specify: Present on Admission (POA): [ ] Yes [ ] No [ ] Unable to determine For continuity of documentation, please document condition throughout progress notes and discharge summary. Thank You. CLINICAL INDICATORS - SIGNS / SYMPTOMS / LABS History of CHF Out of Lasix for the past 3 weeks, Fluid retention, shortness of breath, swelling, edema BNP 23, Negative pleural effusion Echo with normal EF 55-60% PN: Congestive heart failure Repeat echo. Normal EF last year Resume home meds ER: History chf. "Kidney don't function properly - fluid overload." RISKS: Hypertension TREATMENTS: IV Fluids Lasix Echo, X-ray Resume home meds (This form is maintained as a part of the permanent medical record) 2014 [employer]. All Rights Reserved Marquis [email or web address] [phone] MTDD
== END 2018-04-06 18:45 | disposition home or self-care (01) | DRG 309 ==
LOC: ERS 04:56 → ERHOLD 06:14 → 2SW 09:52
PROVIDERS: ADMIT Emergency Medicine; ATTEND Emergency Medicine
DX: I48.92 Unspecified atrial flutter (principal); Z68.44 Body mass index [BMI] 60.0-69.9, adult; I47.1 Supraventricular tachycardia; F41.9 Anxiety disorder, unspecified; D50.9 Iron deficiency anemia, unspecified; F19.10 Other psychoactive substance abuse, uncomplicated; T43.625A Adverse effect of amphetamines, initial encounter; E66.01 Morbid (severe) obesity due to excess calories; F17.210 Nicotine dependence, cigarettes, uncomplicated; K59.00 Constipation, unspecified; N93.8 Other specified abnormal uterine and vaginal bleeding; F14.10 Cocaine abuse, uncomplicated; F15.10 Other stimulant abuse, uncomplicated; F32.9 Major depressive disorder, single episode, unspecified; I87.2 Venous insufficiency (chronic) (peripheral); N92.0 Excessive and frequent menstruation with regular cycle; Z86.19 Personal history of other infectious and parasitic diseases; I10 Essential (primary) hypertension
CPT/HCPCS: 36415; 36416; 71045; 80048; 80053; 80074; 80306; 82553; 83880; 84443; 84484; 85025; 86704; 86705; 86706; 86707; 86803; 87340; 87350; 87389; 87517; 93005; 93010; 93306; 96365; 96366; 96376; J1650; Q0162

== ENCOUNTER 2018-04-28 17:53 | Emergency (ER) | payer OTHER ==
[2018-04-28 19:02] LABS: #Basophils 0.1 thou/uL (0.0-0.2); #Eosinphils 0.1 thou/uL (0.0-0.7); #Lymphocytes 1.6 thou/uL (1.20-3.40); #Monocytes 0.5 thou/uL (0.11-0.59); #Neutrophils 5.2 thou/uL (1.40-6.50); %Basophils 0.7 % (0.0-1.0); %Eosinophils 1.4 % (0.0-10.0); %Lymphocytes 21.7 % (21.0-51.0); %Monocytes 6.2 % (0.0-10.0); %Neutrophils 70.1 % (42.0-75.0); Hemoglobin 11.9 g/dL (12.0-16.0); Mean Corpuscular HGB CONC 29.1 g/dL (32.0-36.0); Mean Corpuscular Hemoglobin 23.4 pg (27.0-31.0); Mean Corpuscular Volume 80.3 fL (78.0-98.0); Mean Platelet Volume 10.8 fL (7.4-10.4); Platelet Count 169 thou/uL (130-400); RBC Distribution Width 18.5 % (11.5-14.5); Red Blood Cell (RBC) Count 5.09 mill/uL (4.20-5.40); White Blood Cell (WBC) Count 7.5 thou/uL (4.8-10.8)
[2018-04-28 19:26] LABS: CKMB 0.5 ng/mL (0-6.6); Troponin I Less than 0.010 ng/mL (< 0.028)
[2018-04-28 19:31] LABS: ALT (SGPT) 12 U/L (8-55); AST (SGOT) 18 U/L (5-34); Albumin 3.6 g/dL (3.5-5.0); Alkaline Phosphatase 67 U/L (40-150); Anion Gap 14 mmol/L (10-20); BUN (Urea Nitrogen) 6 mg/dL (7.0-18.7); Bilirubin, Total 0.6 mg/dL (0.2-1.2); CK (CPK) 50 U/L (29-168); Calc. Creatinine Clearance 0 mL/min (70-130); Calcium 8.8 mg/dL (7.8-10.44); Carbon Dioxide 20 mmol/L (22-29); Chloride 105 mmol/L (98-107); Estimated GFR-MDRD Greater than 90; Globulin 4.4 g/dL (2.4-3.5); Glucose 104 mg/dL (70-105); Potassium 3.5 mmol/L (3.5-5.1); Sodium 135 mmol/L (136-145)
--- NOTE | 2018-04-28 19:57 | RAD ---
CHEST ONE VIEW: 04/28/18 HISTORY: Dyspnea. COMPARISON: 04/03/18. FINDINGS: The cardiac silhouette is magnified by projection. Pulmonary vasculature upper limits of normal. Medi astinum is midline. No lobar consolidation or evidence of pneumothorax. IMPRESSION: No active cardiopulmonary abnormalities are demonstrated. POS: [facility]
[2018-04-28 22:32] LABS: Troponin I Less than 0.010 ng/mL (< 0.028)
[2018-04-28] MEDS ORDERED: Acetaminophen 500 MG TAB ONE (22:35)
== END 2018-04-28 23:06 | disposition home or self-care (01) ==
LOC: ERS 17:53
DX: R00.2 Palpitations (principal); R06.02 Shortness of breath; F17.210 Nicotine dependence, cigarettes, uncomplicated; F41.9 Anxiety disorder, unspecified; I50.9 Heart failure, unspecified; F32.9 Major depressive disorder, single episode, unspecified; Z71.6 Tobacco abuse counseling; Z79.899 Other long term (current) drug therapy; Z79.891 Long term (current) use of opiate analgesic
CPT/HCPCS: 36415; 71045; 80053; 82553; 83880; 84484; 85025; 93005; 99406

== ENCOUNTER 2018-05-19 04:03 | Emergency (ER) | payer OTHER ==
[2018-05-19 05:37] LABS: BHCG - Serum Negative (NEGATIVE); Pregs Control Background? CLEAR/WHITE (CLR/WHITE); Pregs Control Bar Appear? YES (CONTROL BAR)
[2018-05-19 05:57] LABS: Pregnancy Test - Urine (BHCG) Negative (Negative); Pregu Control Background? CLEAR/WHITE (CLR/WHITE); Pregu Control Bar Appear? YES (CONTROL BAR); Specific Gravity 1.007 (1.002-1.036)
[2018-05-19] MEDS ORDERED: predniSONE 20 MG TAB ONE (05:58)
--- NOTE | 2018-05-19 09:06 | RAD ---
2 VIEWS CHEST: Date: 05/19/18 COMPARISON: 12/20/11. HISTORY: Cough. FINDINGS: Two views of the chest show normal sized cardiomediastinal silhouette. There is no evidence of consol idation, mass, or pleural effusion. Degenerative changes are seen in the spine. IMPRESSION: No evidence of acute cardiopulmonary disease. POS: [facility]
== END 2018-05-19 06:02 | disposition home or self-care (01) ==
LOC: ERS 04:03
DX: J40 Bronchitis, not specified as acute or chronic (principal); I50.9 Heart failure, unspecified; F41.9 Anxiety disorder, unspecified; F32.9 Major depressive disorder, single episode, unspecified; F17.210 Nicotine dependence, cigarettes, uncomplicated; D64.89 Other specified anemias; Z79.891 Long term (current) use of opiate analgesic; Z71.6 Tobacco abuse counseling; Z79.899 Other long term (current) drug therapy
CPT/HCPCS: 36415; 71046; 81025; 84703; 87804; 99406; J7506; J7620

== ENCOUNTER 2018-06-15 10:49 | Emergency (ER) | payer OTHER ==
[2018-06-15] MEDS ORDERED: Adenosine 6 MG/2 ML VIAL ONE (10:57)
--- NOTE | 2018-06-15 11:32 | RAD ---
FRONTAL VIEW CHEST: Date: 06/15/18 COMPARISON: 05/19/18. INDICATION: Emergency exam for chest pain, palpitations, and generalized weakness. FINDINGS: There is a generalized increased density of the chest bilaterally. This may relate, at least in part to prominent overlying body wall soft tissues. Underlying parenchymal opacity cannot be excluded on t he basis of this exam. The cardiac silhouette is accentuated by portable technique. IMPRESSION: Generalized increased density of the chest bilaterally as discussed above. Follow-up imaging with ded icated 2 view chest may prove useful. POS: [facility]
[2018-06-15 12:07] LABS: Hemoglobin 10.2 g/dL (12.0-16.0); Mean Corpuscular HGB CONC 30.1 g/dL (32.0-36.0); Mean Corpuscular Hemoglobin 23.1 pg (27.0-31.0); Mean Corpuscular Volume 76.6 fL (78.0-98.0); Mean Platelet Volume 9.6 fL (7.4-10.4); Platelet Count 248 thou/uL (130-400); RBC Distribution Width 17.5 % (11.5-14.5); Red Blood Cell (RBC) Count 4.42 mill/uL (4.20-5.40); White Blood Cell (WBC) Count 6.5 thou/uL (4.8-10.8)
[2018-06-15 12:08] LABS: #Eosinphils 0.1 thou/uL (0.0-0.7); #Lymphocytes 2.5 thou/uL (1.20-3.40); #Monocytes 0.8 thou/uL (0.11-0.59); #Neutrophils 3.1 thou/uL (1.40-6.50); %Basophils 0.3 % (0.0-1.0); %Eosinophils 1.2 % (0.0-10.0); %Lymphocytes 38.3 % (21.0-51.0); %Monocytes 12.8 % (0.0-10.0); %Neutrophils 47.4 % (42.0-75.0)
[2018-06-15 12:34] LABS: MDiff Complete? YES; Microcytosis SLIGHT = 6-15 cells (100X) (0-5/hpf); PLT Morphology Comment Appears Adequate; Polychromasia SLIGHT = 2-3 cells (100X) (0-2/hpf)
[2018-06-15 12:44] LABS: ALT (SGPT) 10 U/L (8-55); AST (SGOT) 14 U/L (5-34); Albumin 3.6 g/dL (3.5-5.0); Alkaline Phosphatase 68 U/L (40-150); Anion Gap 11 mmol/L (10-20); BUN (Urea Nitrogen) 10 mg/dL (7.0-18.7); Bilirubin, Total 0.2 mg/dL (0.2-1.2); CK (CPK) 90 U/L (29-168); Calc. Creatinine Clearance 0 mL/min (70-130); Calcium 9.3 mg/dL (7.8-10.44); Carbon Dioxide 28 mmol/L (22-29); Chloride 99 mmol/L (98-107); Estimated GFR-MDRD Greater than 90; Glucose 101 mg/dL (70-105); Potassium 3.3 mmol/L (3.5-5.1); Protein, Total 7.6 g/dL (6.0-8.3); Sodium 135 mmol/L (136-145)
[2018-06-15 12:49] LABS: CKMB 0.7 ng/mL (0-6.6); Troponin I Less than 0.010 ng/mL (< 0.028)
[2018-06-15 13:13] LABS: Amphetamine Not Detected (NotDetected); Barbiturates Screen Not Detected (NotDetected); Benzodiazepine Screen Not Detected (NotDetected); Cocaine Metabolite Screen Detected (NotDetected); Medtox Control Line Valid? VALID (VALID); Medtox Reader # READER 4; Methadone Not Detected (NotDetected); Methamphetamine Not Detected (NotDetected); Opiate Screen Not Detected (NotDetected); Oxycodone Screen Not Detected (NotDetected); Phencyclidine (PCP) Detected (NotDetected); THC/Cannabinoid Screen Not Detected (NotDetected); Tricyclic Screen Not Detected (NotDetected)
--- NOTE | 2018-06-20 14:03 | EKG ---
Test Reason : PALPITATIONS Blood Pressure : / mmHG Vent. Rate : 185 BPM Atrial Rate : 214 BPM P-R Int : 122 ms QRS Dur : 064 ms QT Int : 246 ms P-R-T Axes : 000 006 -85 degrees QTc Int : 431 ms Supraventricular tachycardia Nonspecific ST and T wave abnormality Abnormal ECG Confirmed by KAZ WLECH, BOLIVAR Freed ([id number]), editor city [place] ([id number]) on 06/20/2018 2:02:48 PM Referred By: Confirmed By:BOLIVAR MCCURDY MD
--- NOTE | 2018-06-20 14:04 | EKG ---
Test Reason : PALPITATIONS Blood Pressure : / mmHG Vent. Rate : 182 BPM Atrial Rate : 104 BPM P-R Int : 000 ms QRS Dur : 062 ms QT Int : 246 ms P-R-T Axes : 000 004 -52 degrees QTc Int : 428 ms Supraventricular tachycardia Nonspecific ST abnormality Abnormal ECG #2 Confirmed by KAZ WELCH, BOLIVAR Freed (9), editor news [place] ([id number]) on 06/20/2018 2:03:43 PM Referred By: Confirmed By:BOLIVAR MCCURDY MD
== END 2018-06-15 13:17 | disposition home or self-care (01) ==
LOC: ERS 10:49
DX: I47.1 Supraventricular tachycardia (principal); I50.9 Heart failure, unspecified; D64.9 Anemia, unspecified; F41.9 Anxiety disorder, unspecified; F32.9 Major depressive disorder, single episode, unspecified; F17.210 Nicotine dependence, cigarettes, uncomplicated; Z79.899 Other long term (current) drug therapy
CPT/HCPCS: 36415; 71045; 80053; 80306; 82550; 82553; 83880; 84484; 85025; 92960; 93005; 94760; 96361; 96374; J0153

== ENCOUNTER 2020-08-11 12:25 | Emergency (ER) | payer OTHER ==
[2020-08-11] MEDS ORDERED: Ondansetron ODT 4 MG TAB ONE (13:12)
[2020-08-11 13:20] LABS: #Eosinphils 0.1 thou/uL (0.0-0.7); #Lymphocytes 1.7 thou/uL (1.20-3.40); #Monocytes 0.5 thou/uL (0.11-0.59); #Neutrophils 3.1 thou/uL (1.40-6.50); %Basophils 0.5 % (0.0-1.0); %Eosinophils 2.5 % (0.0-10.0); %Lymphocytes 31.5 % (21.0-51.0); %Monocytes 9.9 % (0.0-10.0); %Neutrophils 55.7 % (42.0-75.0); Hemoglobin 9.8 g/dL (12.0-16.0); Mean Corpuscular HGB CONC 30.3 g/dL (32.0-36.0); Mean Corpuscular Hemoglobin 21.8 pg (27.0-31.0); Mean Corpuscular Volume 71.9 fL (78.0-98.0); Mean Platelet Volume 6.8 fL (7.4-10.4); Platelet Count 220 thou/uL (130-400); RBC Distribution Width 24.7 % (11.5-14.5); Red Blood Cell (RBC) Count 4.52 mill/uL (4.20-5.40); White Blood Cell (WBC) Count 5.5 thou/uL (4.8-10.8)
[2020-08-11 13:36] LABS: ALT (SGPT) Less than 7 U/L (8-55); AST (SGOT) 11 U/L (5-34); Albumin 3.6 g/dL (3.5-5.0); Alkaline Phosphatase 65 U/L (40-110); Anion Gap 12 mmol/L (10-20); BUN (Urea Nitrogen) 10 mg/dL (7.0-18.7); Bilirubin, Total 0.5 mg/dL (0.2-1.2); Calc. Creatinine Clearance 0 mL/min (70-130); Calcium 8.6 mg/dL (7.8-10.44); Carbon Dioxide 23 mmol/L (22-29); Chloride 109 mmol/L (98-107); Globulin 3.7 g/dL (2.4-3.5); Glucose 104 mg/dL (70-105); Protein, Total 7.3 g/dL (6.0-8.3); Sodium 140 mmol/L (136-145)
[2020-08-11 13:40] LABS: MDiff Complete? YES
[2020-08-11 13:41] LABS: Anisocytosis SLIGHT = 6-15 cells (100X) (0-5/hpf); Hypochromia SLIGHT = 6-15 cells (100X) (0-5/hpf); Microcytosis SLIGHT = 6-15 cells (100X) (0-5/hpf); Ovalocytes SLIGHT = 2-5 cells (100X) (0-1/hpf); Platelet Morphology Comment Appears Adequate; Schistocytes SLIGHT = 2-5 cells (100X) (0-1/hpf); Target Cells SLIGHT = 2-5 cells (100X) (0-1/hpf); Tear Drops SLIGHT = 2-5 cells (100X) (0-1/hpf)
== END 2020-08-11 14:30 ==
LOC: EEVIPCON 12:25 → ERS 12:25
DX: D64.9 Anemia, unspecified (principal); I50.9 Heart failure, unspecified; F17.210 Nicotine dependence, cigarettes, uncomplicated
CPT/HCPCS: 36415; 80053; 85025; 99284; Q0162

== ENCOUNTER 2022-01-04 07:09 | Emergency (ER) | payer OTHER ==
[2022-01-04] MEDS ORDERED: HYDROcodone/Acetaminophen 5/325 mg Tablet ONE (08:13)
[2022-01-04 08:34] LABS: #Eosinphils 0.1 thou/uL (0.0-0.7); #Lymphocytes 1.3 thou/uL (1.20-3.40); #Monocytes 0.3 thou/uL (0.11-0.59); #Neutrophils 4.7 thou/uL (1.40-6.50); %Basophils 0.7 % (0.0-1.0); %Eosinophils 2.2 % (0.0-10.0); %Lymphocytes 19.8 % (21.0-51.0); %Monocytes 4.9 % (0.0-10.0); %Neutrophils 72.4 % (42.0-75.0); Hemoglobin 11.8 g/dL (12.0-16.0); Mean Corpuscular HGB CONC 29.9 g/dL (32.0-36.0); Mean Corpuscular Hemoglobin 24.6 pg (27.0-31.0); Mean Corpuscular Volume 82.5 fL (78.0-98.0); Mean Platelet Volume 6.9 fL (7.4-10.4); Platelet Count 186 thou/uL (130-400); RBC Distribution Width 23.4 % (11.5-14.5); Red Blood Cell (RBC) Count 4.78 mill/uL (4.20-5.40); White Blood Cell (WBC) Count 6.5 thou/uL (4.8-10.8)
[2022-01-04 08:47] LABS: Anisocytosis MODERATE=16-30 cells (100X) (0-5/hpf); Hypochromia SLIGHT = 6-15 cells (100X) (0-5/hpf); MDiff Complete? YES; Ovalocytes SLIGHT = 2-5 cells (100X) (0-1/hpf); Platelet Morphology Comment Appears Adequate; Polychromasia SLIGHT = 2-3 cells (100X) (0-2/hpf); Stomatocytes SLIGHT = 2-5 cells (100X) (0-1/hpf); Target Cells SLIGHT = 2-5 cells (100X) (0-1/hpf)
[2022-01-04 08:57] LABS: ALT (SGPT) 13 U/L (8-55); AST (SGOT) 21 U/L (5-34); Albumin 3.8 g/dL (3.5-5.0); Alkaline Phosphatase 83 U/L (40-110); Anion Gap 13 mmol/L (10-20); BUN (Urea Nitrogen) 9 mg/dL (7.0-18.7); Bilirubin, Total 0.8 mg/dL (0.2-1.2); Calc. Creatinine Clearance 0 mL/min (70-130); Calcium 9.4 mg/dL (7.8-10.44); Carbon Dioxide 24 mmol/L (22-29); Chloride 103 mmol/L (98-107); Glucose 81 mg/dL (70-105); Potassium 4.1 mmol/L (3.5-5.1); Protein, Total 7.8 g/dL (6.0-8.3); Sodium 136 mmol/L (136-145)
[2022-01-04 13:23] LABS: Pregnancy Test - Urine (BHCG) Negative (Negative); Pregu Control Background? CLEAR/WHITE (CLR/WHITE); Pregu Control Bar Appear? YES (CONTROL BAR); Specific Gravity 1.025 (1.002-1.036)
[2022-01-04 15:14] LABS: Chlamydia by PCR Not Detected (NotDetected); GC by PCR Not Detected (NotDetected)
== END 2022-01-04 10:02 | disposition home or self-care (01) ==
LOC: ERS 07:09
DX: D25.9 Leiomyoma of uterus, unspecified (principal); N76.0 Acute vaginitis; R07.9 Chest pain, unspecified; D64.9 Anemia, unspecified; I50.9 Heart failure, unspecified; F17.210 Nicotine dependence, cigarettes, uncomplicated
CPT/HCPCS: 36415; 71045; 80053; 81025; 83880; 84484; 85025; 87480; 87491; 87510; 87591; 87660; 93005

== ENCOUNTER 2022-10-13 09:38 | Emergency (ER) | payer OTHER ==
[2022-10-13 11:02] LABS: Hemoglobin 12.5 g/dL (12.0-16.0); Mean Corpuscular HGB CONC 31.3 g/dL (32.0-36.0); Mean Corpuscular Hemoglobin 24.7 pg (27.0-31.0); Mean Corpuscular Volume 78.8 fl (78.0-98.0); RBC Distribution Width 17.1 % (11.5-14.5); Red Blood Cell (RBC) Count 5.07 mill/uL (4.20-5.40)
[2022-10-13 11:37] LABS: #Eosinphils 0.1 thou/uL (0.0-0.7); #Lymphocytes 1.2 thou/uL (1.20-3.40); #Monocytes 0.4 thou/uL (0.11-0.59); %Basophils 0.4 % (0.0-1.0); %Lymphocytes 17.4 % (21.0-51.0); %Monocytes 6.2 % (0.0-10.0); Elliptocytes SLIGHT = 2-5 cells (100X) (0-1/hpf); Hypochromia SLIGHT = 6-15 cells (100X) (0-5/hpf); MDiff Complete? YES; Platelet Count 273 10x3/uL (130-400); Platelet Morphology Comment Appears Adequate; White Blood Cell (WBC) Count 6.6 10x3/uL (4.8-10.8)
[2022-10-13 11:46] LABS: Acetaminophen Less than 10.0 mcg/mL (10.0-30.0); Alcohol 133 mg/dL (Less than 10); Salicylate Less than 8.0 mg/dL (15.0-30.0)
[2022-10-13 12:56] LABS: ALT (SGPT) 9 U/L (8-55); AST (SGOT) 11 U/L (5-34); Albumin 3.7 g/dL (3.5-5.0); Alkaline Phosphatase 65 U/L (40-110); Anion Gap 14 mmol/L (10-20); BUN (Urea Nitrogen) 4 mg/dL (7.0-18.7); Bilirubin, Total 0.3 mg/dL (0.2-1.2); Calc. Creatinine Clearance 0 mL/min (70-130); Calcium 8.9 mg/dL (7.8-10.44); Carbon Dioxide 21 mmol/L (22-29); Chloride 109 mmol/L (98-107); Estimated GFR 107; Globulin 3.8 g/dL (2.4-3.5); Glucose 91 mg/dL (70-105); Potassium 3.1 mmol/L (3.5-5.1); Protein, Total 7.5 g/dL (6.0-8.3); Sodium 141 mmol/L (136-145)
[2022-10-13 12:58] LABS: Amphetamine Not Detected (NotDetected); Barbiturates Screen Not Detected (NotDetected); Benzodiazepine Screen Not Detected (NotDetected); Cocaine Metabolite Screen Detected (NotDetected); Methadone Not Detected (NotDetected); Methamphetamine Not Detected (NotDetected); Opiate Screen Not Detected (NotDetected); Oxycodone Screen Not Detected (NotDetected); Phencyclidine (PCP) Detected (NotDetected); THC/Cannabinoid Screen Not Detected (NotDetected); Tricyclic Screen Not Detected (NotDetected)
[2022-10-13] MEDS ORDERED: Potassium Chloride 20 MEQ TAB ONE (13:34)
== END 2022-10-13 13:56 | disposition home or self-care (01) ==
LOC: ERS 09:38
DX: R07.9 Chest pain, unspecified (principal); F19.10 Other psychoactive substance abuse, uncomplicated; I50.9 Heart failure, unspecified; F17.210 Nicotine dependence, cigarettes, uncomplicated
CPT/HCPCS: 36415; 51701; 71045; 80053; 80306; 80307; 83880; 84484; 85025; 93005; 94760

== ENCOUNTER 2022-11-06 09:29 | Inpatient (IN) | payer OTHER ==
[2022-11-06] MEDS ORDERED: Albuterol 2.5 MG/0.5 ML NEB ONE (09:53)
[2022-11-06] MEDS ORDERED: Ipratropium Bromide 2.5 ml Neb ONE (09:53)
[2022-11-06] MEDS ORDERED: Adenosine 6 MG/2 ML VIAL ONE (10:33)
[2022-11-06] MEDS ORDERED: LORazepam 2 MG/ML SYR.(CARPUJECT) ONE (10:35)
[2022-11-06] MEDS ORDERED: fentaNYL 50 mcg/mL 1 mL Vial ONE ×2 (10:47→10:49)
[2022-11-06] MEDS ORDERED: Iopamidol 370 76% 100 ML VIAL ONE (10:51)
[2022-11-06] MEDS ORDERED: Diltiazem 125 MG/25 ML SDV ONE (10:52)
[2022-11-06] MEDS ORDERED: Metoprolol Tartrate 5 MG/5 ML VIAL ONE (11:19)
[2022-11-06 11:29] LABS: #Eosinphils 0.1 thou/uL (0.0-0.7); #Lymphocytes 1.4 thou/uL (1.20-3.40); #Monocytes 0.5 thou/uL (0.11-0.59); #Neutrophils 3.7 thou/uL (1.40-6.50); %Basophils 0.4 % (0.0-1.0); %Eosinophils 1.2 % (0.0-10.0); %Lymphocytes 24.3 % (21.0-51.0); %Monocytes 9.4 % (0.0-10.0); %Neutrophils 64.6 % (42.0-75.0); Hemoglobin 10.1 g/dL (12.0-16.0); Mean Corpuscular HGB CONC 31.3 g/dL (32.0-36.0); Mean Corpuscular Hemoglobin 24.7 pg (27.0-31.0); Mean Platelet Volume 9.9 fL (7.4-10.4); Platelet Count 188 10x3/uL (130-400); RBC Distribution Width 18.1 % (11.5-14.5); Red Blood Cell (RBC) Count 4.11 mill/uL (4.20-5.40); White Blood Cell (WBC) Count 5.7 10x3/uL (4.8-10.8)
[2022-11-06] MEDS ORDERED: Clopidogrel Bisulfate 75 MG TAB ONE (11:46)
[2022-11-06 11:51] LABS: ALT (SGPT) 9 U/L (8-55); AST (SGOT) 16 U/L (5-34); Albumin 3.8 g/dL (3.5-5.0); Alkaline Phosphatase 64 U/L (40-110); Anion Gap 15 mmol/L (10-20); BUN (Urea Nitrogen) 8 mg/dL (7.0-18.7); Bilirubin, Total 0.2 mg/dL (0.2-1.2); Calc. Creatinine Clearance 0 mL/min (70-130); Calcium 8.7 mg/dL (7.8-10.44); Carbon Dioxide 23 mmol/L (22-29); Chloride 106 mmol/L (98-107); Estimated GFR 95; Globulin 3.6 g/dL (2.4-3.5); Glucose 88 mg/dL (70-105); Protein, Total 7.4 g/dL (6.0-8.3); Sodium 141 mmol/L (136-145)
[2022-11-06 12:27] LABS: SARS-CoV-2 NAA Rapid Test Not Detected (NotDetected)
[2022-11-06 12:33] LABS: Acetaminophen Less than 10.0 mcg/mL (10.0-30.0); Alcohol Less than 10 mg/dL (Less than 10); Salicylate Less than 8.0 mg/dL (15.0-30.0)
[2022-11-06] MEDS ORDERED: Lorazepam 1 MG TAB PO PRN (12:47)
[2022-11-06] MEDS ORDERED: Lorazepam 2 MG/ML VIAL IM PRN (12:47)
[2022-11-06] MEDS ORDERED: Ondansetron ODT 4 MG TAB PO PRN (12:47)
[2022-11-06] MEDS ORDERED: Ondansetron PF 4 MG/2 ML Vial IVP PRN (12:48)
[2022-11-06] MEDS ORDERED: Bisacodyl 5 MG TAB PO PRN (12:48)
[2022-11-06] MEDS ORDERED: Senokot S 8.6-50 MG TAB PO PRN (12:48)
[2022-11-06] MEDS ORDERED: Acetaminophen 650 MG Suppository PR PRN (12:48)
[2022-11-06] MEDS ORDERED: Electrolyte Replacement Protocol 1 EACH FS SCH ×2 (13:00→13:15)
[2022-11-06] MEDS ORDERED: Artificial Tear Sol 15 ML BOT EA EYE PRN (13:07)
[2022-11-06] MEDS ORDERED: Moisturizing Cream (Eucerin) 113 GM JAR TOP PRN (13:07)
[2022-11-06] MEDS ORDERED: Loratadine 10 MG TAB PO PRN (13:07)
[2022-11-06] MEDS ORDERED: Ipratropium Bromide 2.5 ml Neb NEB PRN (13:07)
[2022-11-06] MEDS ORDERED: Sodium Chloride 0.65% Nasal 44 ML BOT EA NARE PRN (13:07)
[2022-11-06] MEDS ORDERED: Potassium Chloride 20 MEQ TAB PO SCH (13:15)
[2022-11-06 13:23] LABS: Pregnancy Test - Urine (BHCG) Negative (Negative); Pregu Control Background? CLEAR/WHITE (CLR/WHITE); Pregu Control Bar Appear? YES (CONTROL BAR); Specific Gravity 1.021 (1.002-1.036)
[2022-11-06 14:30] VITALS: BMI 52.1
[2022-11-06 14:36] LABS: Bilirubin, Direct 0.2 mg/dL (0.1-0.3); Magnesium 1.7 mg/dL (1.6-2.6)
[2022-11-06 14:41] LABS: Troponin I Less than 0.010 ng/mL (< 0.028)
[2022-11-06 14:51] LABS: Phosphorus 2.6 mg/dL (2.3-4.7)
[2022-11-06] MEDS: Thiamine HCl 200 MG/2 ML VIAL SLOW IVP SCH (15:18)
[2022-11-06] MEDS: Doxycycline 100 MG in Sodium Chloride 0.9% 100 ML IVPB SCH (15:22)
[2022-11-06 16:00] LABS: Amphetamine Not Detected (NotDetected); Barbiturates Screen Not Detected (NotDetected); Benzodiazepine Screen Not Detected (NotDetected); Cocaine Metabolite Screen Detected (NotDetected); Methadone Not Detected (NotDetected); Methamphetamine Detected (NotDetected); Opiate Screen Detected (NotDetected); Oxycodone Screen Not Detected (NotDetected); Phencyclidine (PCP) Detected (NotDetected); THC/Cannabinoid Screen Not Detected (NotDetected); Tricyclic Screen Not Detected (NotDetected)
[2022-11-06] MEDS ORDERED: Diltiazem 125 MG in Sodium Chloride 0.9% 100 ML IVPB SCH (16:00)
[2022-11-06 17:25] LABS: Troponin I Less than 0.010 ng/mL (< 0.028)
[2022-11-06 20:26] LABS: Free T4 (Free Thyroxine) 1.08 ng/dL (0.70-1.48)
[2022-11-06] MEDS: Apixaban 5 MG TAB PO SCH (20:51)
[2022-11-06] MEDS: Famotidine/PF 20 mg/2ml Vial SLOW IVP SCH (20:52)
[2022-11-06] MEDS: Famotidine 20 MG TAB PO SCH (20:52)
[2022-11-06] MEDS: Acetaminophen 325 MG TAB PO PRN (20:56)
[2022-11-06] MEDS: Guaifenesin DM 100-10/5 ML UDCUP PO PRN (21:05)
[2022-11-07] MEDS: Guaifenesin DM 100-10/5 ML UDCUP PO PRN ×3 (01:18→21:22)
[2022-11-07] MEDS: Doxycycline 100 MG in Sodium Chloride 0.9% 100 ML IVPB SCH (01:19)
[2022-11-07 04:38] LABS: Anion Gap 13 mmol/L (10-20); BUN (Urea Nitrogen) 10 mg/dL (7.0-18.7); Calc. Creatinine Clearance 257 mL/min (70-130); Calcium 8.2 mg/dL (7.8-10.44); Carbon Dioxide 20 mmol/L (22-29); Cardiac Risk 2.2 (Less than 4.5); Chloride 108 mmol/L (98-107); Cholesterol 105 mg/dl (< 200 Desired); Estimated GFR 104; Glucose 103 mg/dL (70-105); HDL Cholesterol 47 mg/dL (>60 Neg Risk); LDL Cholesterol, Calculated 47 mg/dL; Sodium 137 mmol/L (136-145); Triglycerides 55 mg/dL (Less than 150)
[2022-11-07 04:40] LABS: Hemoglobin 10.8 g/dL (12.0-16.0); Mean Corpuscular HGB CONC 31.1 g/dL (32.0-36.0); Mean Corpuscular Hemoglobin 25.2 pg (27.0-31.0); Mean Corpuscular Volume 81.1 fl (78.0-98.0); Platelet Count 176 10x3/uL (130-400); RBC Distribution Width 18.5 % (11.5-14.5); Red Blood Cell (RBC) Count 4.29 mill/uL (4.20-5.40); White Blood Cell (WBC) Count 5.3 10x3/uL (4.8-10.8)
[2022-11-07 05:16] LABS: Eosinophils 3 % (0-10); Lymphocytes 22 % (21-51); MDiff Complete? YES; Monocytes 10 % (0-10); Neutrophil 64 % (42-75); Reactive Lymphocytes 1 % (0-10)
[2022-11-07] MEDS ORDERED: Magnesium 2 GM/50 ML(in water) 2 GM in Premix Bag 1 BAG IVPB SCH (05:45)
[2022-11-07] MEDS ORDERED: Potassium Chloride 20 MEQ TAB PO SCH (06:00)
[2022-11-07] MEDS: Folic Acid 1 MG TAB PO SCH (08:44)
[2022-11-07] MEDS: Famotidine 20 MG TAB PO SCH ×2 (08:44→20:32)
[2022-11-07] MEDS: Ferrous Sulfate 325 MG TAB PO SCH (08:44)
[2022-11-07] MEDS: Clopidogrel Bisulfate 75 MG TAB PO SCH (08:44)
[2022-11-07] MEDS: Multivit, Therapeutic 1 TAB PO SCH (08:45)
[2022-11-07] MEDS: Apixaban 5 MG TAB PO SCH (08:45)
[2022-11-07] MEDS: Famotidine/PF 20 mg/2ml Vial SLOW IVP SCH (08:45)
[2022-11-07] MEDS: Citalopram 20 MG TAB PO SCH (08:45)
[2022-11-07] MEDS ORDERED: predniSONE 20 MG TAB PO SCH (09:30)
[2022-11-07] MEDS ORDERED: Lorazepam 1 MG TAB PO PRN (12:47)
[2022-11-07] MEDS: Thiamine HCl 200 MG/2 ML VIAL SLOW IVP SCH (15:02)
[2022-11-07] MEDS: Acetaminophen 325 MG TAB PO PRN ×2 (15:05→20:32)
[2022-11-07] MEDS ORDERED: diphenhydrAMINE 50 MG CAP PO SCH (22:18)
[2022-11-08] MEDS: Guaifenesin DM 100-10/5 ML UDCUP PO PRN (03:17)
[2022-11-08 03:37] VITALS: BP 135/68; TEMP 98.6
[2022-11-08] MEDS: Citalopram 20 MG TAB PO SCH (10:31)
[2022-11-08] MEDS: Folic Acid 1 MG TAB PO SCH (10:31)
[2022-11-08] MEDS: Clopidogrel Bisulfate 75 MG TAB PO SCH (10:31)
[2022-11-08] MEDS: Ferrous Sulfate 325 MG TAB PO SCH (10:31)
[2022-11-08] MEDS: Multivit, Therapeutic 1 TAB PO SCH (10:31)
[2022-11-08] MEDS: Famotidine 20 MG TAB PO SCH (10:31)
[2022-11-08] MEDS ORDERED: Lorazepam 1 MG TAB PO PRN (12:47)
[2022-11-09] MEDS ORDERED: Lorazepam 0.5 MG TAB PO PRN (12:47)
[2022-11-09] MEDS ORDERED: Thiamine 100 MG TAB PO SCH (13:00)
== END 2022-11-08 12:02 | disposition home or self-care (01) | DRG 309 ==
LOC: ERS 09:29 → IMCU/EMU 12:56 → 2NO 11-07 19:18
PROVIDERS: ADMIT Family Medicine; ATTEND Internal Medicine
PROC: 5A2204Z Restoration of Cardiac Rhythm, Single (ICD-10-PCS; principal; 2022-11-06)
DX: I47.1 Supraventricular tachycardia (principal); Z68.43 Body mass index [BMI] 50.0-59.9, adult; I48.92 Unspecified atrial flutter; I50.9 Heart failure, unspecified; F32.A Depression, unspecified; F41.9 Anxiety disorder, unspecified; I11.0 Hypertensive heart disease with heart failure; Z20.822 Contact with and (suspected) exposure to COVID-19; J20.9 Acute bronchitis, unspecified; F10.10 Alcohol abuse, uncomplicated; F19.10 Other psychoactive substance abuse, uncomplicated; E66.01 Morbid (severe) obesity due to excess calories; D64.9 Anemia, unspecified; E87.6 Hypokalemia; Z88.8 Allergy status to other drugs, medicaments and biological substances; Z88.0 Allergy status to penicillin; Z79.899 Other long term (current) drug therapy; Z98.51 Tubal ligation status
CPT/HCPCS: 36415; 71045; 71275; 80048; 80053; 80061; 80306; 80307; 81025; 82248; 83735; 83880; 84100; 84145; 84439; 84443; 84481; 84484; 85025; 92960; 93005; 93010; 93306; 94640; 96365; 96366; 96375; 96376; 99292; J0153; J1650; J2060; J3010; J3411; J3475; J3490; J7512; J7611; Q9967; S0028

== ENCOUNTER 2022-11-15 14:04 | Emergency (ER) | payer OTHER ==
[2022-11-15 14:53] LABS: #Eosinphils 0.1 thou/uL (0.0-0.7); #Lymphocytes 1.2 thou/uL (1.20-3.40); #Monocytes 0.5 thou/uL (0.11-0.59); #Neutrophils 3.4 thou/uL (1.40-6.50); %Basophils 0.6 % (0.0-1.0); %Eosinophils 1.5 % (0.0-10.0); %Lymphocytes 23.2 % (21.0-51.0); %Monocytes 9.6 % (0.0-10.0); %Neutrophils 65.2 % (42.0-75.0); Hemoglobin 9.8 g/dL (12.0-16.0); Mean Corpuscular HGB CONC 31.7 g/dL (32.0-36.0); Mean Corpuscular Hemoglobin 24.6 pg (27.0-31.0); Mean Corpuscular Volume 77.9 fl (78.0-98.0); Mean Platelet Volume 10.1 fL (7.4-10.4); Platelet Count 202 10x3/uL (130-400); RBC Distribution Width 18.1 % (11.5-14.5); Red Blood Cell (RBC) Count 3.99 mill/uL (4.20-5.40); White Blood Cell (WBC) Count 5.2 10x3/uL (4.8-10.8)
[2022-11-15] MEDS ORDERED: Ketorolac Tromethamine 30 MG/ML VIAL ONE (15:03)
[2022-11-15 15:11] LABS: ALT (SGPT) 10 U/L (8-55); AST (SGOT) 13 U/L (5-34); Albumin 3.5 g/dL (3.5-5.0); Alkaline Phosphatase 58 U/L (40-110); Anion Gap 12 mmol/L (10-20); BUN (Urea Nitrogen) 9 mg/dL (7.0-18.7); Bilirubin, Total 0.6 mg/dL (0.2-1.2); Calc. Creatinine Clearance 0 mL/min (70-130); Calcium 8.5 mg/dL (7.8-10.44); Carbon Dioxide 24 mmol/L (22-29); Chloride 104 mmol/L (98-107); Estimated GFR 107; Globulin 3.3 g/dL (2.4-3.5); Glucose 98 mg/dL (70-105); Potassium 3.6 mmol/L (3.5-5.1); Protein, Total 6.8 g/dL (6.0-8.3); Sodium 136 mmol/L (136-145)
== END 2022-11-15 16:05 | disposition home or self-care (01) ==
LOC: ERS 14:04
DX: R07.9 Chest pain, unspecified (principal); I50.9 Heart failure, unspecified; F17.210 Nicotine dependence, cigarettes, uncomplicated
CPT/HCPCS: 36415; 71045; 80053; 84484; 85025; 93005; 94760; 96372; J1885

== ENCOUNTER 2022-11-23 14:40 | Emergency (ER) | payer OTHER ==
[2022-11-23 16:51] LABS: #Eosinphils 0.1 thou/uL (0.0-0.7); #Monocytes 0.5 thou/uL (0.11-0.59); #Neutrophils 2.4 thou/uL (1.40-6.50); %Basophils 0.7 % (0.0-1.0); %Eosinophils 2.8 % (0.0-10.0); %Lymphocytes 28.2 % (21.0-51.0); %Monocytes 11.9 % (0.0-10.0); %Neutrophils 56.2 % (42.0-75.0); Hemoglobin 9.3 g/dL (12.0-16.0); Mean Corpuscular HGB CONC 29.1 g/dL (32.0-36.0); Mean Corpuscular Hemoglobin 22.6 pg (27.0-31.0); Mean Corpuscular Volume 77.9 fl (78.0-98.0); Platelet Count 217 10x3/uL (130-400); RBC Distribution Width 18.8 % (11.5-14.5); Red Blood Cell (RBC) Count 4.11 mill/uL (4.20-5.40); White Blood Cell (WBC) Count 4.3 10x3/uL (4.8-10.8)
[2022-11-23 17:17] LABS: ALT (SGPT) 9 U/L (8-55); AST (SGOT) 13 U/L (5-34); Albumin 3.5 g/dL (3.5-5.0); Alkaline Phosphatase 55 U/L (40-110); Anion Gap 11 mmol/L (10-20); BUN (Urea Nitrogen) 8 mg/dL (7.0-18.7); Bilirubin, Total 0.3 mg/dL (0.2-1.2); Calc. Creatinine Clearance 0 mL/min (70-130); Calcium 8.6 mg/dL (7.8-10.44); Carbon Dioxide 23 mmol/L (22-29); Chloride 108 mmol/L (98-107); Estimated GFR 102; Globulin 3.3 g/dL (2.4-3.5); Glucose 113 mg/dL (70-105); Potassium 3.8 mmol/L (3.5-5.1); Protein, Total 6.8 g/dL (6.0-8.3); Sodium 138 mmol/L (136-145)
[2022-11-23] MEDS ORDERED: Acetaminophen/Codeine 30-300mg Tablet ONE (17:29)
== END 2022-11-23 18:07 | disposition home or self-care (01) ==
LOC: ERS 14:40
DX: F41.0 Panic disorder [episodic paroxysmal anxiety] (principal); D72.819 Decreased white blood cell count, unspecified; I50.9 Heart failure, unspecified; F17.210 Nicotine dependence, cigarettes, uncomplicated
CPT/HCPCS: 36415; 71045; 80053; 84484; 85025; 93005